=== PATIENT | male | born 1985 | race African-American/Black ===

== ENCOUNTER 2016-09-09 18:05 | Emergency (ER) | payer SELFPAY ==
[~2016-09-09] VITALS: Ht 180.3 cm; Wt 140.0 kg
[~2016-09-09 18:05] MED LIST: AMOXICILLIN500 MG PO; LISINOPRIL10 MG PO; OXYCODONE HCL30 MG PO
[2016-09-09] MEDS ORDERED: HYDROCHLOROT25 MG PO (18:09)
[2016-09-09] MEDS ORDERED: ULTRAM50 M1 PO (19:06)
[2016-09-09] MEDS ORDERED: FLEXERIL PO (19:06)
[2016-09-09 19:09] VITALS: BP 133/71
== END 2016-09-09 19:09 | disposition home or self-care (01) | DRG 563 ==
LOC: ED 18:05
DX: S39.012A Strain of muscle, fascia and tendon of lower back, initial encounter (principal); X50.0XXA Overexertion from strenuous movement or load, initial encounter; W01.0XXA Fall on same level from slipping, tripping and stumbling without subsequent striking against object, initial encounter; Y93.89 Activity, other specified; Y92.007 Garden or yard of unspecified non-institutional (private) residence as the place of occurrence of the external cause

== ENCOUNTER 2018-04-07 08:12 | Emergency (ER) | payer OTHER ==
[~2018-04-07] VITALS: Ht 180.3 cm; Wt 144.5 kg
[~2018-04-07 08:12] MED LIST changes: +FLEXERIL PO; +HYDROCHLOROT25 MG PO; +ULTRAM50 M1 PO
[2018-04-07] MEDS ORDERED: TORADOL PO (08:38)
[2018-04-07] MEDS ORDERED: DELTASONE20 MG PO (08:38)
[2018-04-07] MEDS ORDERED: AMOXICILLIN500 MG PO (08:38)
[2018-04-07 08:42] VITALS: BP 137/94
== END 2018-04-07 08:46 | disposition home or self-care (01) ==
LOC: ED 08:12
DX: J02.9 Acute pharyngitis, unspecified (principal); R09.89 Other specified symptoms and signs involving the circulatory and respiratory systems; R05 Cough